=== PATIENT | male | born 1960 | race Caucasian/White ===

== ENCOUNTER 2016-07-12 07:59 | Observation (INO) | payer BC, OTHER ==
[2016-07-12] MEDS ORDERED: Aspirin Low Dose CHEW TAB* 81 MG PO ONE (08:09)
[2016-07-12] MEDS ORDERED: Nitroglycerin TAB 0.4 MG* 0.4 MG TAB SL ONE (08:22)
[2016-07-12 08:31] LABS: Hematocrit 42 % (42-52); Hemoglobin 14.8 g/dl (14.0-18.0); Mean Corpuscular HGB Conc 35 g/dl (31-36); Mean Corpuscular Hemoglobin 33 pg (27-31); Mean Corpuscular Volume 95 fL (80-94); Mean Platelet Volume 7 um3 (7.4-10.4); Red Blood Count 4.42 10^6/ul (4.0-5.4); Red Cell Distribution Width 12 % (10.5-15); White Blood Count 6.7 10^3/ul (3.5-10.8)
[2016-07-12 08:48] LABS: Albumin 4.8 g/dL (3.2-5.2); BUN/Creatinine Ratio 12.4 (8-20); Calcium 9.6 mg/dL (8.6-10.3); EGFR African American 113.7 (>60); EGFR Non-African American 88.4 (>60); Globulin 2.6 g/dL (2-4); Total Bilirubin 0.9 mg/dL (0.2-1.0); Total Protein 7.4 g/dL (6.4-8.9)
[2016-07-12 08:51] LABS: Troponin I 0.01 ng/mL (<0.04)
[2016-07-12] MEDS ORDERED: Ondansetron INJ* 2 MG/ML VIAL ONE (09:09)
[2016-07-12] MEDS ORDERED: Ondansetron INJ* 2 MG/ML VIAL IV ONE (09:09)
--- NOTE | 2016-07-12 09:17 | RAD ---
HISTORY: Chest pain COMPARISONS: July 02, 2004 VIEWS:1: Single frontal portable view of the chest at 9:00 AM FINDINGS: LINES AND TUBES: None. CARDIOMEDIASTINAL SILHOUETTE: The cardiomediastinal silhouette is normal for portable technique. PLEURA: The costophrenic angles are sharp. No pleural abnormalities are noted. LUNG PARENCHYMA: The lungs are clear. ABDOMEN: The upper abdomen is clear. There is no subphrenic gas. BONES AND SOFT TISSUES: There are chronic appearing fractures of the left seventh eighth and ninth ribs IMPRESSION: NO ACTIVE CARDIOPULMONARY DISEASE.
[2016-07-12] MEDS ORDERED: Acetaminophen TAB* 325 MG PO PRN (10:49)
[2016-07-12] MEDS ORDERED: Morphine INJ* 2 MG/ML 1 ML SYRINGE IV PRN (10:55)
[2016-07-12] MEDS ORDERED: Temazepam CAP* 15 MG PO PRN (10:55)
[2016-07-12] MEDS ORDERED: Metoprolol Tartrate TAB* 25 MG PO SCH ×2 (11:00→21:00)
[2016-07-12] MEDS ORDERED: NS 0.9% 1000 ML* 1,000 ML IV SCH (11:15)
--- NOTE | 2016-07-12 12:46 | HP ---
CC: Dr. Allen; [place] [facility] in [place], [place] HISTORY AND PHYSICAL: DATE OF ADMISSION: 07/12/16 PRIMARY CARE PROVIDER: [place] [facility] [place], [place]. CHIEF COMPLAINT: Chest pain. HISTORY OF PRESENT ILLNESS: Ghulam Patricia is a 55-year-old male with history of hypertension, and abnormal EKG in the past who presents complaining of chest pain. The patient stated that he woke up in the middle of the night at 2 a.m. with chest pain. He felt that it was a "gas bubble." He somehow fell asleep. At this point the discomfort was of 2/10 intensity. He drifted off to sleep but when he woke up at 7 a.m., he developed significant worsening of the pain up to 8/10 in intensity. He denied shortness of breath but he was diaphoretic. The pain was substernal, radiating to the left arm, making his arm "ache a lot. " The pain in his left arm was described as sharp, relieved after patient came into the emergency department and was treated with nitroglycerin and morphine. Currently, his EKG is unchanged from prior. His initial troponin is unremarkable. He is chest pain free. He is going to be placed on observation with diagnosis of chest pain. PAST MEDICAL HISTORY: 1. Hypertension. 2. History of abnormal EKG noted in 2008. At that point, the patient was seen by Dr. Means and had a cardiac stress test as well as cardiac catheterization. From my review of the cardiac catheterization, the patient had "normal coronary arteries." 3. History of a bout of diverticulitis in the past. MEDICATIONS: Include: 1. Hydrochlorothiazide 25 mg daily. 2. Losartan 25 mg daily. 3. Baby aspirin 81 mg daily. ALLERGIES: No known drug allergies. FAMILY HISTORY: Significant for heart disease. Patient's father at the age of 57 of acute heart attack. The patient's brother who had a history of lymphoma in remission of acute heart attack in February 2017 at the age of 61. The patient's mother had a pacer placed for unknown reason in her 70's and at the age of 89 of "old age." SOCIAL HISTORY: The patient denies tobacco or drug use. He drinks 6 to 8 beers a day. 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 REVIEW OF SYSTEMS: Please see history of present illness. The patient and patient's present in the room agree that the patient has an excellent exercise capacity. He denies any shortness of breath with exertion or recent chest pains with exertion. The patient's noted that the patient felt somewhat "under the weather" yesterday, though went to bed early. He has problems with snoring at night and questioning obstructive sleep apnea. All the remaining 14 systems were reviewed with the patient and were otherwise negative. PHYSICAL EXAMINATION GENERAL: The patient is a very pleasant 55-year-old male who is in no acute distress. Awake, alert and oriented x3. VITAL SIGNS: Blood pressure of 153/88, heart rate of 81 and regular, respiratory rate 14, oxygen saturation 97% on room air, temperature of 99.7. HEENT: Head: Atraumatic, normocephalic. Eyes: Pupils equal and reactive to light and accommodation. Oropharynx: Clear. Mucosa moist. NECK: Supple. No JVD, no bruits bilaterally. RESPIRATORY: Clear to auscultation bilaterally. CARDIOVASCULAR: Regular rate and rhythm. No murmur. ABDOMEN: Soft, nontender. Positive bowel sounds in all 4 quadrants. EXTREMITIES: There is no edema. Pulses +2 bilaterally. No clubbing, cyanosis. NEUROLOGIC: Speech is clear. Cranial nerves II through XII grossly intact. Motor strength is 5/5 bilaterally. PSYCHIATRIC EVALUATION: Oriented x3 with no evidence of anxiety or depression. DIAGNOSTIC STUDIES/LABORATORY DATA: Shows sodium of 125, potassium of 4.0, chloride 91, carbon dioxide 22, BUN 11, creatinine 0.89. Liver function tests showed AST of 74, ALT of 68, alkaline phosphatase of 47, lactic acid 1.1. The patient's initial troponin was 0.01, second troponin of 0. His brain natriuretic peptide was 36. D-dimer below 200. The patient's EKG showed sinus rhythm with block with a heart rate of 77 beats per minute. It is comparable to the EKG from 2009. Portable chest x-ray, impression: "No active cardiopulmonary disease present." ASSESSMENT AND PLAN: The patient is a 55-year-old male with significant family history of heart disease who has a history of normal cardiac catheterization in 2009 and presents with what appears to be classic presentation of angina but without biochemical evidence of myocardial injury. The patient has a baseline of abnormal EKG. At this point, the patient is going to be placed on monitor worker unit. Dr. Allen will see patient in consultation. The patient most likely will undergo a stress echocardiogram later on today. In regards to patient's hypertension, I will not institute beta abbie prior to patient's stress test . The patient is also going to be continued on his Losartan but I will hold his hydrochlorothiazide due to hyponatremia. The patient's hyponatremia is most likely multifactorial. He is on hydrochlorothiazide that can cause it, but he also is drinking a significant amount of beer a day which could also cause it. I will place patient on intravenous hydration, stop patient's hydrochlorothiazide and monitor. In regards to mild elevation of LFTs, it may be due to alcohol. I will recheck the levels in the morning. For DVT prophylaxis, the patient is at a low risk and ambulation is going to be encouraged. The patient's code status is full and his surrogate is his , Kizzy Patricia. TIME SPENT: Approximately 65 minutes were spent on admission of this patient, more than half the time was spent [id number] with the patient during the interview and physical exam. [id number]/[facility] #: [id number] RADHA
[2016-07-12 12:52] VITALS: BP 145/88
--- NOTE | 2016-07-12 16:48 | CONSULT ---
Subjective Date of Service: 07/12/16 Interval History: Admission Date: 07/12/16 Consult date 07/12/2016 Provider: Belen Rocha MD/Alhaji miller PCP: [place] [facility] in [place], [place] CHIEF COMPLAINT: Chest pain. Reason for consult: chest pain HISTORY OF PRESENT ILLNESS: Ghulam Patricia is a 55-year-old man with history of hypertension, abnormal had a normal coronary angiogram in 2008 for chest pain and a false positive stress test showing inferior wall ischemia, alcoholism, prior tobacco use, family history of early CAD presents with chest pain. Patient woke up in middle of night with feeling of a "gas bubble." The discomfort worsened and radiated to the left arm (was sharp and achy), the chest discomfort was more cramp like. No unusual foods for him yesterday and no recent illness. No dyspnea, palpitations, edema, orthopnea, lightheadedness or syncope. He was given NTG and IV zofran in the ER. He has been pain free since then. He has had indigestion symptoms all day. He ruled out for AMI with serial troponins. EKG shows NSR, LVH/RBBB/LAFB unchanged on repeat and grossly unchanged from 2009 at the time he had a normal coronary angiogram. He exercised for 6:30 on yang protocol, no chest pain, study stopped primarily due to SBP in the 240's although was also reaching maximum efforts due to dyspnea/fatigue. His echocardiogram showed concentric LVH consistent with hypertensive heart disease but there was no EKG (limited by baseline abnormality) or echocardiogram evidence of ischemia. PAST MEDICAL HISTORY: 1. Hypertension. 2. Hypertensive heart disease 3. Alcoholism 4. History of diverticulitis MEDICATIONS: Include: 1. Hydrochlorothiazide 25 mg daily. 2. Losartan 25 mg daily. 3. Baby aspirin 81 mg daily. ALLERGIES: No known drug allergies. FAMILY HISTORY: Significant for heart disease. Patient's father at the age of 57 of acute heart attack. The patient's brother who had a history of lymphoma in remission of acute heart attack in February 2017 at the age of 61. The patient's mother had a pacer placed for unknown reason in her 70's and at the age of 89 of "old age." SOCIAL HISTORY: The patient denies any current tobacco or drug use. He drinks 6 to 8 beers a day. 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 Medications Active Medications: Acetaminophen (Tylenol Tab*) 650 mg PO Q4H PRN PRN Reason: FEVER/PAIN Sodium Chloride (Ns 0.9% 1000 Ml*) 1,000 mls @ 100 mls/hr IV PER RATE [facility] Last Admin: 07/12/16 13:19 Dose: 100 mls/hr Losartan Potassium (Cozaar Tab*) 25 mg PO DAILY [facility] Metoprolol Tartrate (Lopressor Tab*) 25 mg PO BID [facility] Morphine Sulfate (Morphine Inj (Syringe)*) 1 mg IV Q4H PRN PRN Reason: PAIN Temazepam (Restoril Cap*) 15 mg PO BEDTIME PRN PRN Reason: INSOMNIA Home Medications: Aspirin [Aspirin 81 MG TAB] 81 mg PO DAILY 07/12/16 [History Confirmed 07/12/16] Hydrochlorothiazide TAB* [Hydrodiuril TAB*] 25 mg PO DAILY 07/12/16 [History Confirmed 07/12/16] Losartan Potassium 25 mg PO DAILY 07/12/16 [History Confirmed 07/12/16] Review of Systems - Measurements Intake and Output: Intake and Output Last 24 Hours 07/10/16 07/11/16 07/12/16 07/13/16 06:59 06:59 06:59 06:59 Intake Total 2 Balance 2 Weight 180 lb Intake: IV Fluids 2 Oral 0 - Review of Systems Constitutional Symptoms: Negative: Weight Gain, Weight Loss, Weakness, Fatigue, Fever, Night Sweats, Unexplained Falls Dermatology: Negative: Rash, Skin Lesions Eyes: Negative: Change in Vision, Double Vision Thyroid: Negative: Cold Intolerance, Heat Intolerance, Sweatiness, Tremor, Frequent Defecation, Constipation, Palpitations, Weight Loss, Weight Gain Pulmonary: Negative: Cough, Sputum, Hemoptysis, Wheezing, Respiratory Distress, Shortness of Breath, COPD, Asthma, Exercise Intolerance, Home Oxygen Cardiology: Positive: Chest Pain, Other Negative: Shortness of Breath, Palpitations, Swelling of Ankles, Peripheral Vascular Dis, Edema, Faintness, Syncope, Claudication, Paroxysmal Nocturnal Dyspnea, Orthopnea Gastroenterology: Positive: Indigestion Negative: Nausea, Vomiting, Anorexia, Difficulty Swallowing, Heartburn, Constipation, Diarrhea, Blood in Stools, Change in Bowel Habits, Haematemesis, Melena Genital - Urinary: Negative: Dysuria, Hematuria, Nocturia Musculoskeletal: Negative: Joint Pain, Joint Stiffness, Arthritis, Osteoporosis Endocrinology: Negative: Obesity, Diabetes, Hyperglycemia, Hypoglycemia, Diabetic Foot Ulcers, Polydipsia, Polyuria Hematologic/Lymphatic: Negative: Use of Anticoagulant, Use of Antiplatelet Drugs Neurology: Negative: Headaches, Migraines, Diplopia, Dizziness, Change in Balancing, Change in Coordination, Change in Memory Psychiatry: Negative: Depressed Mood, Adhedonia, Weight Change, Tearfulness Allergic/Immunologic: Negative: Hx Anaphylaxis, Hx Angioedema, Hx HIV, Immunocompromise Review of Systems Statement: All other review of systems negative, unless stated above. Objective Vital Signs: Temp Pulse Resp BP Pulse Ox 98.1 F 84 16 145/88 98 07/12/16 12:45 07/12/16 12:45 07/12/16 12:50 07/12/16 12:45 07/12/16 12:45 Appearance: nad, pleasant Ears/Nose/Mouth/Throat: Clear Oropharnyx, Mucous Membranes Moist Neck: NL Appearance and Movements; NL JVP Respiratory: Symmetrical Chest Expansion and Respiratory Effort, Clear to Auscultation Cardiovascular: NL Sounds; No Murmurs; No JVD, RRR, No Edema Abdominal: NL Sounds; No Tenderness; No Distention Extremities: No Edema Skin: No Rash or Ulcers Neurological: Alert and Oriented x 3 Laboratory Results: 07/12/16 08:10 07/12/16 08:09 Total Bilirubin 0.90 mg/dL (0.2-1.0) 07/12/16 08:09 AST 74 U/L (13-39) H 07/12/16 08:09 ALT 68 U/L (7-52) H 07/12/16 08:09 Alkaline Phosphatase 47 U/L (34-104) 07/12/16 08:09 B-Natriuretic Peptide 36 pg/mL (-100) 07/12/16 08:10 Total Protein 7.4 g/dL (6.4-8.9) 07/12/16 08:09 Albumin 4.8 g/dL (3.2-5.2) 07/12/16 08:09 Globulin 2.6 g/dL (2-4) 07/12/16 08:09 Albumin/Globulin Ratio 1.8 (1-3) 07/12/16 08:09 03/17/17 03/17/17 03/17/17 08:09 10:05 14:24 Troponin I 0.01 0.00 0.01 Diagnostic Imaging: Cardiac catheterization 08/26/2008 [facility] – [place] Dr. Means: indication chest pain and inferior wall ischemia on stress test. Normal LV systolic function 60-65%, LVEDP 10 mmHg, normal coronary arteries. TTE 07/2008: Normal LV size and function Posterior wall hypokinesis 3.9 cm ascending aorta No significant valvular abnormalities EKG Data: EKG 07/12/2016: NSR, RBBB/LAFB (LVH), repeat grossly unchanged. Grossly unchanged form 08/2008 Assessment/Plan As outlined above, Mr. Patricia's current episode of chest pain appears to be non- cardiac related. 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
--- NOTE | 2016-07-13 05:42 | DS ---
CC: [place] office in [place] DISCHARGE SUMMARY: DATE OF ADMISSION: 07/12/16 DATE OF DISCHARGE: 07/12/16 PRIMARY CARE PROVIDER: From [facility] office. DISCHARGE DIAGNOSIS: Chest pain with negative cardiac stress echocardiogram. CONSULTATIONS DURING THE HOSPITAL STAY: Included Dr. Allen from Cardiology. LABORATORY DATA: Unchanged from admission apart from continuing negative troponin throughout the [facility] hospital stay. ORDERS AT DISCHARGE: Medication srivastava include: 1. Omeprazole 20 mg b.i.d. 2. Metoprolol tartrate 12.5 mg b.i.d. 3. Losartan 25 mg daily. 4. Aspirin 81 mg daily. PHYSICAL EXAMINATION AT DISCHARGE: Unchanged from admission. HOSPITALIZATION COURSE: Ghulam Patricia is a 55-year-old male with past medical history as included i n history and physical dictated by myself on the same day. The patient presented with chest pain soy t started occurring at night and woke him up from sleep at 2 a.m. It was left-sided substernal radi ating to the left arm associated with diaphoresis. He presented to the ED and his EKG was abnormal at baseline with no additional changes. His troponin has continued to be negative throughout his [facility] stay. Dr. Allen kindly saw the patient in consultation and performed a stress echocardiogra m which was negative as per verbal report from Dr. Allen. The patient by the time of discharge has no more discomfort or pain. At this point, the differential includes gastroesophageal reflux diseas e with possibility of esophageal spasm versus maybe symptoms of obstructive sleep apnea. I discussed the possibilities with the patient. I offered for the patient to stay overnight for fur ther monitoring and overnight pulse oximetry to evaluate obstructive sleep apnea further versus disc harge on Prilosec and outpatient evaluation with sleep study. The patient prefers to go home today. The patient also was hyponatremic with mild elevation of liver function test and history of drinking up to 8 beers a day. The patient was strongly encouraged to stop drinking alcohol. His hyponatrem ia may have also been due to hydrochlorothiazide use which was discontinued. Instead of that, I am going to place the patient on a small dose of beta abbie. He also received intravenous hydration throughout his hospital stay. Please note this is a short summary of the patient's hospital stay. Please refer to further medical records for details. [id number]/[facility] #: [id number]
[2016-07-13] MEDS ORDERED: Losartan TAB* 25 MG PO SCH (09:00)
--- NOTE | 2016-07-13 10:56 | ED ---
Myriam Vazquez Matthew, scribed for Toby Valencia MD on 07/12/16 at 0816 . HPI Chest Pain - HPI Summary HPI Summary: A 55 y/o male presents to the ED with gradually worsening left lateral chest pain since 02:00 this morning. The pain is currently rated 5/10 in severity, described as sharp, and radiates down the left arm. At onset, the patient rated the pain as mild and described it has a muscle pull/gas. Associated symptoms include diaphoresis. The patient denies SOB, nausea, and vomiting. The patient was initially able to go back to sleep after the onset of the chest pain. PMHx includes HTN, Diverticulitis. The patient does not smoke. FHx of CAD. His father of an RI at 57. His mother needed a pacemaker in her early 70s, and the patient's brother of an RI in February. - History of Current Complaint Time Seen by Provider: 07/12/16 08:01 Hx Obtained From: Patient Onset/Duration: Started Hours Ago, Atraumatic, Still Present Time of Onset: 02:00 Timing: Constant Initial Severity: Mild Current Severity: Moderate Pain Intensity: 5 Pain Scale Used: 0-10 Numeric Chest Pain Location: Left Lateral Chest Pain Radiates: Yes Chest Pain Radiates To:: Arm - LT Character: Sharp/Stabbing Associated Signs and Symptoms: Positive: Chest Pain, Diaphoresis. Negative: Shortness of Breath, Nausea, Vomiting - Allergy/Home Medications Allergies/Adverse Reactions: Allergies Allergy/AdvReac Type Severity Reaction Status Date / Time No Known Allergies Allergy Verified 07/12/16 08:23 Home Medications: Home Medications Aspirin [Aspirin 81 MG TAB] 81 mg PO DAILY 07/12/16 [History Confirmed 07/12/16] Losartan Potassium 25 mg PO DAILY 07/12/16 [History Confirmed 07/12/16] PMH/Surg Hx/FS Hx/Imm Hx Cardiovascular History: Reports: Hx Coronary Artery Disease, Hx Hypertension, Other Cardiovascular Problems/Disorders - Valve replacement GI History: Reports: Hx Diverticulosis - Family History Known Family History: Positive: Cardiac Disease - Social History Lives: With Family Hx Substance Use: No Hx Tobacco Use: No Review of Systems Positive: Skin Diaphoresis Eyes: Negative ENT: Negative Positive: Chest Pain Respiratory: Negative Negative: Shortness Of Breath Gastrointestinal: Negative Negative: Vomiting, Nausea Genitourinary: Negative Positive: Myalgia - Left arm pain Skin: Negative Neurological: Negative Psychological: Normal All Other Systems Reviewed And Are Negative: Yes Physical Exam Triage Information Reviewed: Yes Vital Signs On Initial Exam: Temp Pulse Resp BP Pulse Ox 99.3 F 79 18 179/96 96 07/12/16 08:08 07/12/16 08:08 07/12/16 08:08 07/12/16 08:08 07/12/16 08:20 Vital Signs Reviewed: Yes Skin: Positive: Diaphoretic, Pale Head/Face: Positive: Normal Head/Face Inspection Eyes: Positive: Normal ENT: Positive: Hearing grossly normal Neck: Positive: Supple, Nontender Respiratory/Lung Sounds: Positive: Clear to Auscultation, Breath Sounds Present Cardiovascular: Positive: RRR, Pulses are Symmetrical in both Upper and Lower Extremities Abdomen Description: Positive: Nontender, Soft Bowel Sounds: Positive: Present Musculoskeletal: Positive: Other Neurological: Positive: Normal Psychiatric: Positive: Normal Diagnostics - Vital Signs Vital Signs Temp Pulse Resp BP Pulse Ox 07/12/16 09:30 73 13 145/83 94 07/12/16 09:00 71 16 144/82 93 07/12/16 08:37 99.7 F 71 18 151/91 96 07/12/16 08:33 99.7 F 77 18 151/91 97 07/12/16 08:30 151/91 07/12/16 08:27 80 13 95 07/12/16 08:26 165/102 07/12/16 08:20 96 07/12/16 08:08 99.3 F 79 18 179/96 98 - Laboratory Lab Results: Lab Results 07/12/16 07/12/16 07/12/16 Range/Units 08:09 08:10 08:10 WBC 6.7 (3.5-10.8) 10^3/ul RBC 4.42 (4.0-5.4) 10^6/ul Hgb 14.8 (14.0-18.0) g/dl Hct 42 (42-52) % MCV 95 H (80-94) fL MCH 33 H (27-31) pg MCHC 35 (31-36) g/dl RDW 12 (10.5-15) % Plt Count 269 (150-450) 10^3/ul MPV 7 L (7.4-10.4) um3 Neut % (Auto) 64.0 (38-83) % Lymph % (Auto) 17.7 L (25-47) % Sac % (Auto) 14.9 H (1-9) % Eos % (Auto) 2.4 (0-6) % Baso % (Auto) 1.0 (0-2) % Absolute Neuts (auto) 4.3 (1.5-7.7) 10^3/ul Absolute Lymphs (auto) 1.2 (1.0-4.8) 10^3/ul Absolute Monos (auto) 1.0 H (0-0.8) 10^3/ul Absolute Eos (auto) 0.2 (0-0.6) 10^3/ul Absolute Basos (auto) 0.1 (0-0.2) 10^3/ul Absolute Nucleated RBC 0 10^3/ul Nucleated RBC % 0.1 D-Dimer, Quantitative (Less Than 230) ng/mL Sodium 125 L (133-145) mmol/L Potassium 4.0 (3.5-5.0) mmol/L Chloride 91 L (101-111) mmol/L Carbon Dioxide 22 (22-32) mmol/L Anion Gap 12 H (2-11) mmol/L BUN 11 (6-24) mg/dL Creatinine 0.89 (0.67-1.17) mg/dL Est GFR ( Amer) 113.7 (>60) Est GFR (Non-Af Amer) 88.4 (>60) BUN/Creatinine Ratio 12.4 (8-20) Glucose 98 (70-100) mg/dL Lactic Acid 1.1 (0.5-2.0) mmol/L Calcium 9.6 (8.6-10.3) mg/dL Total Bilirubin 0.90 (0.2-1.0) mg/dL AST 74 H (13-39) U/L ALT 68 H (7-52) U/L Alkaline Phosphatase 47 (34-104) U/L Troponin I 0.01 (<0.04) ng/mL B-Natriuretic Peptide ( - 100) pg/mL Total Protein 7.4 (6.4-8.9) g/dL Albumin 4.8 (3.2-5.2) g/dL Globulin 2.6 (2-4) g/dL Albumin/Globulin Ratio 1.8 (1-3) 07/12/16 07/12/16 Range/Units 08:10 08:10 WBC (3.5-10.8) 10^3/ul RBC (4.0-5.4) 10^6/ul Hgb (14.0-18.0) g/dl Hct (42-52) % MCV (80-94) fL MCH (27-31) pg MCHC (31-36) g/dl RDW (10.5-15) % Plt Count (150-450) 10^3/ul MPV (7.4-10.4) um3 Neut % (Auto) (38-83) % Lymph % (Auto) (25-47) % Sac % (Auto) (1-9) % Eos % (Auto) (0-6) % Baso % (Auto) (0-2) % Absolute Neuts (auto) (1.5-7.7) 10^3/ul Absolute Lymphs (auto) (1.0-4.8) 10^3/ul Absolute Monos (auto) (0-0.8) 10^3/ul Absolute Eos (auto) (0-0.6) 10^3/ul Absolute Basos (auto) (0-0.2) 10^3/ul Absolute Nucleated RBC 10^3/ul Nucleated RBC % D-Dimer, Quantitative < 200 (Less Than 230) ng/mL Sodium (133-145) mmol/L Potassium (3.5-5.0) mmol/L Chloride (101-111) mmol/L Carbon Dioxide (22-32) mmol/L Anion Gap (2-11) mmol/L BUN (6-24) mg/dL Creatinine (0.67-1.17) mg/dL Est GFR ( Amer) (>60) Est GFR (Non-Af Amer) (>60) BUN/Creatinine Ratio (8-20) Glucose (70-100) mg/dL Lactic Acid (0.5-2.0) mmol/L Calcium (8.6-10.3) mg/dL Total Bilirubin (0.2-1.0) mg/dL AST (13-39) U/L ALT (7-52) U/L Alkaline Phosphatase (34-104) U/L Troponin I (<0.04) ng/mL B-Natriuretic Peptide 36 ( - 100) pg/mL Total Protein (6.4-8.9) g/dL Albumin (3.2-5.2) g/dL Globulin (2-4) g/dL Albumin/Globulin Ratio (1-3) Result Diagrams: 07/12/16 08:10 07/12/16 08:09 Lab Statement: Any lab studies that have been ordered have been reviewed, and results considered in the medical decision making process. - Radiology CXR Xray Interpretation: No Acute Changes - IMPRESSION: NO ACTIVE CARDIOPULMONARY DISEASE. Radiology Interpretation Completed By: Radiologist - EKG 08:14 Cardiac Rate: NL - 77 bpm EKG Rhythm: Sinus Rhythm ST Segment: Non-Specific EKG Interpretation: RBBB EKG Comparison: No Significant Change - 08/26/08 08:04 Cardiac Rate: NL - 83 bpm EKG Rhythm: Sinus Rhythm ST Segment: Non-Specific EKG Interpretation: RBBB 09:48 Cardiac Rate: NL - 82 bpm EKG Rhythm: Sinus Rhythm ST Segment: Non-Specific EKG Interpretation: RBBB EKG Comparison: No Significant Change - previous EKG done at 08:14 Re-Evaluation - Re-Evaluation First Eval Re-Evaluation Time: 10:03 Comment: On re-evaluation, the patient states that he has a Hx of heart disease , and valve replacement. He also states that he drinks a 6 pack per day. The patient just lost his job and his brother whom was also his boss. The patients was just released from this hospital. Hes been caring for his and his brothers . Chest Pain Course/Dx - Course Assessment/Plan: A 55 y/o male presents to the ED with gradually worsening left lateral chest pain since 02:00 this morning. The pain is currently rated 5/10 in severity, described as sharp, and radiates down the left arm. Labs were reviewed and the patients first troponin was 0.00. EKG showed sinus rhythm at 77 bpm with RBBB. Additional EKG were unchanged. Given the patients strong family Hx of CAD and the patients MD Calc score of 16, the case was discussed with Dr. Rocha who will admit the patient for observation. - Diagnoses Provider Diagnoses: Chest pain - Provider Notifications Discussed Care Of Patient With: Dr. Allen ([employer]) at 09:16 -- Notified of patient's history. Dr. Rocha (Hospitalist) at 09:36 -- Notified of patient's history and will admit the patient into her services. Discharge - Discharge Plan Condition: Stable Disposition: [facility]MITTED TO [facility] documentation as recorded by the Myriam ramey Matthew accurately reflects the service I personally performed and the decisions made by , Toby Valencia MD.
== END 2016-07-12 17:50 | disposition home or self-care (01) ==
LOC: ED 07:59 → MEDTELE 09:38
PROVIDERS: ADMIT Internal Medicine; ATTEND Internal Medicine
DX: R07.89 Other chest pain (principal); Z79.82 Long term (current) use of aspirin; E87.1 Hypo-osmolality and hyponatremia; I10 Essential (primary) hypertension; I45.2 Bifascicular block; Z82.49 Family history of ischemic heart disease and other diseases of the circulatory system; R79.89 Other specified abnormal findings of blood chemistry; Z95.2 Presence of prosthetic heart valve; I11.9 Hypertensive heart disease without heart failure; F10.20 Alcohol dependence, uncomplicated; Z87.891 Personal history of nicotine dependence
CPT/HCPCS: 36415; 71010; 80053; 83605; 83880; 84484; 85025; 85379; 93005; 96374; 96375; 99283; A9270-GY; G0378; J2405

== ENCOUNTER 2017-10-12 20:24 | Emergency (ER) | payer OTHER ==
--- NOTE | 2017-10-12 21:56 | RAD ---
HISTORY: left hand swelling COMPARISONS: None VIEWS: 4, Frontal, lateral, and oblique views of the left hand FINDINGS: BONE DENSITY: Normal. BONES: There is no acute displaced fracture. There is a well-corticated bone fragment off the styloid process of the ulna suggestive of remote avulsion injury. JOINTS: There is advanced osteoarthritis of the first CMC joint and the fifth DIP joint and to lesser extent of the second DIP joint. ALIGNMENT: There is no dislocation. SOFT TISSUES: There is soft tissue swelling along the radial aspect of the palm. OTHER FINDINGS: None. IMPRESSION: 1. SOFT TISSUE SWELLING. 2. OSTEOARTHRITIS. 3. NO ACUTE OSSEOUS INJURY. IF SYMPTOMS PERSIST, RECOMMEND REPEAT IMAGING.
[2017-10-12] MEDS ORDERED: oxyCODONE TAB* 5 MG TAB PO ONE (22:22)
--- NOTE | 2017-10-12 22:26 | ED ---
Upper Extremity Pain - HPI Summary HPI Summary: 57-year-old male presents with left arm pain for the past 2 weeks. He states after he had a shingles vaccine started to have left elbow pain. He states his left elbow swelling up but then it resolved. He then developed left knee pain and edema. [facility] did his [facility] so he was never seen. He states his knee edema resolved. Yesterday he developed left hand edema and pain. He gets a sharp pain anytime it is touch. Admits to numbness and tingling. He denies any injury. No fevers. No chills. No neck pain. No weakness. never had this before. no history of arthritis. has been taking naproxen without relief. is requesting pain medication. - History of Current Complaint Chief Complaint: EDGeneral Stated Complaint: LT HAND PAIN Time Seen by Provider: 10/12/17 22:00 - Allergies/Home Medications Allergies/Adverse Reactions: Allergies Allergy/AdvReac Type Severity Reaction Status Date / Time shellfish derived Allergy Anaphylatic Verified 10/12/17 20:48 Shock PMH/Surg Hx/FS Hx/Imm Hx Endocrine/Hematology History: Denies: Hx Diabetes Cardiovascular History: Reports: Hx Angina, Hx Coronary Artery Disease, Hx Hypercholesterolemia, Hx Hypertension, Other Cardiovascular Problems/Disorders - Valve replacement Denies: Hx Myocardial Infarction, Hx Peripheral Vascular Disease, Hx Valvular Heart Disease Respiratory History: Denies: Hx Asthma, Hx Chronic Obstructive Pulmonary Disease (COPD) GI History: Reports: Hx Diverticulosis Musculoskeletal History: Denies: Hx Arthritis, Hx Osteoporosis Neurological History: Denies: Hx Headaches Infectious Disease History: No Infectious Disease History: Denies: Traveled Outside the [place] in Last 30 Days - Family History Known Family History: Positive: Cardiac Disease - Social History Alcohol Use: Daily Alcohol Amount: "6-8" daily according to the H&P Hx Substance Use: No Substance Use Type: Reports: None Hx Tobacco Use: No Smoking Status (MU): Former Smoker Review of Systems Negative: Fever Negative: Chest Pain Negative: Shortness Of Breath Positive: Myalgia - left hand, Edema - left hand All Other Systems Reviewed And Are Negative: Yes Physical Exam Triage Information Reviewed: Yes Vital Signs On Initial Exam: Initial Vitals Temp Pulse Resp BP Pulse Ox 99.2 F 90 18 173/88 96 10/12/17 20:44 10/12/17 20:44 10/12/17 20:44 10/12/17 20:44 10/12/17 20:44 Vital Signs Reviewed: Yes Appearance: Positive: Well-Appearing Skin: Positive: Warm, Dry Head/Face: Positive: Normal Head/Face Inspection Eyes: Positive: Normal, Conjunctiva Clear ENT: Positive: Pharynx normal Respiratory/Lung Sounds: Positive: Clear to Auscultation, Breath Sounds Present Cardiovascular: Positive: Normal, RRR Musculoskeletal: Positive: Strength/ROM Intact - left hand, Edema Left - entire hand, Other - good pulses, capillary refill<2 secs, able to oppose all fingers, sensation grossly intact, tenderness over left hand Neurological: Positive: Normal Psychiatric: Positive: Normal Diagnostics - Vital Signs Vital Signs Temp Pulse Resp BP Pulse Ox 10/12/17 20:44 99.2 F 90 18 173/88 96 - Laboratory Result Diagrams: 10/12/17 22:31 10/12/17 22:31 Lab Statement: Any lab studies that have been ordered have been reviewed, and results considered in the medical decision making process. - Radiology hand Xray Interpretation: Positive (See Comments) - edema Radiology Interpretation Completed By: Radiologist - Ultrasound No standard instances Ultrasound Interpretation: No Acute Changes Ultrasound Interpretation Completed By: Radiologist Course/Dx - Course Course Of Treatment: 57-year-old male presents with left arm pain for the past 2 weeks. He states after he had a shingles vaccine started to have left elbow pain. He states his left elbow swelling up but then it resolved. He then developed left knee pain and edema. [facility] so he was never seen. He states his knee edema resolved. Yesterday he developed left hand edema and pain. He gets a sharp pain anytime it is touch. Admits to numbness and tingling. He denies any injury. No fevers. No chills. No neck pain. No weakness. never had this before. no history of arthritis. has been taking naproxen without relief. is requesting pain medication. on exam has edema noted to left hand. neurovascular intact. wbc normal. crp elevated. u/s no dvt. with the random joint swelling will treat potentially as lyme. will have follow up with rheumatology. will give gabapentin as pain is worst when objects touch area so likely some nerve component. patient understand and agrees with plan. - Diagnoses Differential Diagnosis/HQI/PQRI: Positive: Arthritis, Septic Arthritis, Strain, Other - dvt, lyme, Provider Diagnoses: Left hand pain Discharge - Sign-Out/Discharge Documenting (check all that apply): Discharge/Admit/Transfer - Discharge Plan Condition: Good Disposition: HOME Prescriptions: DOXYcycline CAP(*) [DOXYcycline 100MG CAP(*)] 100 mg PO BID #27 cap Gabapentin CAP(*) [Neurontin 300 CAP(*)] 300 mg PO TID #21 cap oxyCODONE TAB* [Roxycodone TAB 5 mg*] 5 mg PO Q6H PRN #16 tab MDD 4 PRN Reason: Pain Patient Education Materials: Edema (ED) Referrals: No Primary Care Phys,NOPCP [Primary Care Provider] - Additional Instructions: will have take doxycycline twice a day for 14 days for potential lyme infection will have take gabapentin once a day for 2 days, then twice a day for three more days, then three times a day follow up with rheumatology Elevate extremity Take ibuprofen or Tylenol every 6 hours, use oxycodone for break through pain every 6 hours Follow up with primary within 5 days Return to ED if develop any new or worsening symptoms - Billing Disposition and Condition Condition: GOOD Disposition: Home
[2017-10-12 22:45] LABS: ABS Basophils 0 10^3/ul (0-0.2); ABS Eosinophils 0.1 10^3/ul (0-0.6); ABS Lymphocytes 0.8 10^3/ul (1.0-4.8); ABS Monocytes 1.2 10^3/ul (0-0.8); ABS Neutrophils 6.5 10^3/ul (1.5-7.7); ABS Nucleated RBC 0 10^3/ul; Eosinophil % 1.7 % (0-6); Hematocrit 38 % (42-52); Hemoglobin 13.6 g/dl (14.0-18.0); Lymphocyte % 9.2 % (25-47); Mean Corpuscular HGB Conc 36 g/dl (31-36); Mean Corpuscular Hemoglobin 34 pg (27-31); Mean Corpuscular Volume 96 fL (80-94); Mean Platelet Volume 6.9 um3 (7.4-10.4); Nucleated Red Blood Cells % 0; Platelet Count 239 10^3/ul (150-450); Red Blood Count 3.97 10^6/ul (4.00-5.40); Red Cell Distribution Width 13 % (10.5-15); White Blood Count 8.7 10^3/ul (3.5-10.8)
[2017-10-12 23:02] LABS: EGFR Non-African American 112.1 (>60)
[2017-10-12] MEDS ORDERED: DOXYcycline CAP(*) 100 MG PO ONE (23:54)
[2017-10-12] MEDS ORDERED: Gabapentin CAP(*) 300 MG PO ONE (23:54)
[2017-10-13 00:12] VITALS: BP 129/69
--- NOTE | 2017-10-13 07:42 | RAD ---
HISTORY: left hand/arm pain/edema COMPARISONS: None relevant TECHNIQUE: Multiple transverse and longitudinal ultrasound images were obtained of the left upper extremity from the level of the internal jugular vein inferiorly through to the infra-cubital veins using grayscale, color Doppler, and spectral Doppler imaging with and without compression and with augmentation. Comparison images were obtained of the contralateral internal jugular vein and subclavian vein. FINDINGS: VEINS: The venous system of the left upper extremity is compressible throughout its course, with normal flow on color Doppler imaging and normal response to augmentation on spectral Doppler imaging. SOFT TISSUES: Unremarkable. OTHER FINDINGS: None. IMPRESSION: NO LEFT UPPER EXTREMITY DEEP VEIN THROMBOSIS
[2017-10-14 22:22] LABS: B garinii/B afzelii PCR Negative (Negative)
== END 2017-10-13 00:10 | disposition home or self-care (01) ==
LOC: ED 20:24
DX: M79.642 Pain in left hand (principal); M25.562 Pain in left knee; R60.0 Localized edema; R20.0 Anesthesia of skin; R20.2 Paresthesia of skin; Z87.891 Personal history of nicotine dependence
CPT/HCPCS: 36415; 80053; 85025; 85652; 86141; 87476; 87798; 99282; A9270-GY